=== PATIENT | male | born 1975 | race Caucasian/White ===

== ENCOUNTER 2023-03-22 12:43 | Emergency (ER) | payer MEDICAID, SELFPAY ==
[2023-03-22 13:12] VITALS: BP 134/95; PULSE 104; RESP 16; TEMP 37.2; O2SAT 94; BMI 26.6
--- NOTE | 2023-03-22 13:12 | ED_ITS ---
HPI - Eye Problem General Chief complaint: Eye Problems Stated complaint: R eye swelling Time Seen by Provider: 03/22/23 13:13 Source: patient Mode of arrival: ambulatory Limitations: no limitations History of Present Illness HPI Narrative: 47 yo male healthy who does not require corrective lenses here with complaints of right upper eyelid swelling/redness/drainage x 2 days. No vision change, eye pain, photophobia. No injury or trauma. Related Data Previous Rx's Medication Instructions Recorded erythromycin 5 mg/gram (0.5 %) eye 0.5 inch ophthalmic (eye) BID #3.5 03/22/23 ointment grams Allergies Allergy/AdvReac Type Severity Reaction Status Date / Time No Known Allergies Allergy Verified 03/22/23 13:12 Review of Systems Review of Systems: Yes all other systems are reviewed and are negative Constitutional: Constitutional: Reports no additional constitutional complaints, Denies body ache(s), Denies chills, Denies fever(s), Denies headache(s) and Denies weakness Eyes: Eyes: Reports no additional eye complaints, Denies blurry vision, Denies change in vision, Reports eye discharge, Denies irritation, Denies eye pain, Denies requires corrective lenses and Denies photophobia ENT: Reports system reviewed and no additional complaints, except as documented, Denies dizziness, Denies headache(s), Denies nasal congestion, Denies nasal discharge and Denies neck pain Cardiovascular: Cardiovascular: Reports no additional cardiovascular complaints, Denies chest pain, Denies leg edema and Denies dyspnea Respiratory: Respiratory: Reports no additional respiratory complaints, Denies cough and Denies dyspnea Gastrointestinal: Gastrointestinal: Reports no additional gastrointestinal complaints, Denies abdominal pain, Denies diarrhea, Denies nausea and Denies vomiting Genitourinary: Genitourinary: Denies urinary incontinence Musculoskeletal: Musculoskeletal: Reports no additional musculoskeletal complaints, Denies back pain, Denies arthralgias, Denies joint swelling, Denies neck pain, Denies numbness and Denies tingling Integumentary/Breasts: Skin/Breast: Reports system reviewed and no additional complaints, except as docu and Denies rash Neurologic: Reports system reviewed and no additional complaints, except as documented, Denies Abnormal speech present, Denies dizziness, Denies headache(s), Denies numbness, Denies tingling and Denies weakness [facility] Past Medical History Attestation statement: The following information was validated with the patient. Source: old records reviewed and nursing notes reviewed Physical Exam Vital Signs: Vital Signs: Last Vital Signs Temp 98.9 F 03/22/23 13:12 Pulse 104 H 03/22/23 13:12 Resp 16 03/22/23 13:12 BP 134/95 H 03/22/23 13:12 Pulse Ox 94 03/22/23 13:12 O2 Del Method Room Air 03/22/23 13:12 BMI result Body Mass Index 26.6 Const: General: cooperative, healthy appearing, comfortable and no acute distress Orientation/consciousness: patient oriented x3 Limitations: no limitations HEENT: Head: Yes normal to inspection Ears: hearing grossly normal bilaterally General nose exam: Normal external nose present Face and sinus: Yes normal facial exam Mouth: Normal oral and palatal mucosa present Throat: Yes posterior oropharynx normal Eyes: General: appearance normal, both eyes and all related structures Visual Cottrell: normal visual cottrell by confrontation Alignment and Position: alignment normal Periorbital: periorbital findings normal Eyelids: Yes other (Right upper eyelid swelling/erythema) Conjunctivae: conjunctivae normal Sclerae: sclerae normal Corneas: corneas normal Pupils: Equal, round and reactive pupils present EOM: EOMs intact bilaterally Direct Ophthalmoscopy: normal light reflex and No photophobia Neck: Neck: Yes normal visual inspection Chest: Chest palpation & inspection: normal inspection of the chest Resp: Effort & Inspection: normal respiratory effort Auscultation: clear to auscultation bilaterally Cardio: Rate: regular rate Rhythm: regular rhythm Peripheral pulses: Peripheral pulses 2+ throughout GI: Inspection: Yes normal to inspection Palpation (GI): Soft to palpation and nontender Auscultation: normal bowel sounds Back/Spine/Pelvis: Thoracic/Lumbar Spine: thoracic and lumbar spine normal to inspection Skin: General skin exam: no rashes or lesions noted Neuro: General: patient oriented x3, no focal motor deficits and normal sensation to monofilament Cranial nerves: Yes Equal, round and reactive pupils present Cognition (Neuro): normal cognition Speech: No Abnormal speech present Gait exam (Neuro): Normal gait present Motor exam (neuro): 5/5 motor strength present throughout Extrem: General: Yes normal to inspection Medical Decision Making Medical Decision Making MDM Narrative: 47 yo male healthy who does not require corrective lenses here with complaints of right upper eyelid swelling/redness/drainage x 2 days. No vision change, eye pain, photophobia. No injury or trauma. Exam c/w chalazion. PERRLA. EOM normal. No visual complaints Will recommend warm compresses, gentle massage and topical antibiotic ointment Differential Diagnosis Differential Diagnoses: The differential diagnosis associated with the presentation includes chalazion, hordelouem, conjunctivitis Low concern for abrasion, fb, orbital cellulites Admission/Observation Consideration of admission/observation: Escalation of care including admission/observation considered Normal EOM, no visual complaints, proctosis to suggest orbital cellulitis requiring CT imaging, urgent ophthalmology consultation Tests considered The following testing was considered but not selected: Normal EOM, no visual complaints, proctosis to suggest orbital cellulitis and need for Ct imaging Prescription Management I considered prescription management with: Antibiotic Discharge Plan Discharge Clinical Impression: Chalazion Patient Disposition: Home, Self-Care Instructions: Chalazion (ED) Additional Instructions: Warm compresses, gentle massage Prescriptions: New erythromycin 5 mg/gram (0.5 %) ointment 0.5 inch ophthalmic (eye) BID Qty: 3.5 0RF Referrals: Physician,Unknown J [Primary Care Provider] - 1 week (PCP)
== END 2023-03-22 13:52 | disposition home or self-care (01) ==
PROVIDERS: Emergency Provider Emergency Medicine Emergency Medical Services
DX: H00.11 Chalazion right upper eyelid (principal); H01.9 Unspecified inflammation of eyelid
CPT/HCPCS: 99282; 99283

== ENCOUNTER 2023-06-05 18:58 | Emergency (ER) | payer MEDICAID, SELFPAY ==
--- NOTE | ~2023-06-05 | XR_ITS ---
EXAMINATION: XR FINGER, LEFT CLINICAL INFORMATION: Cellulitis/abscess or COMPARISON: None available. TECHNIQUE: 3 views of the left left or the finger. FINDINGS: Bone alignment is normal. No fracture, dislocation or x-ray evidence of osteomyelitis. Normal joint spaces. Mild soft tissue swelling XR/XR finger LT min 2V IMPRESSION: Mild soft tissue swelling. No fracture or x-ray evidence of osteomyelitis.
--- NOTE | ~2023-06-05 | XR_ITS ---
EXAMINATION: XR CHEST CLINICAL INFORMATION: Left chest pain COMPARISON: None available. TECHNIQUE: 2 views of the chest were obtained. FINDINGS: No significant abnormality is noted involving the heart, lungs, mediastinum, bony thorax or soft tissues. Old right fifth rib fracture. XR/XR chest 2V IMPRESSION: No evidence for acute disease in the chest.
--- NOTE | 2023-06-05 19:05 | ECG_ITS ---
Test Reason : chest pain Blood Pressure : / mmHG Vent. Rate : 076 BPM Atrial Rate : 076 BPM P-R Int : 122 ms QRS Dur : 078 ms QT Int : 388 ms P-R-T Axes : 056 014 029 degrees QTc Int : 436 ms Normal sinus rhythm Minimal voltage criteria for LVH, may be normal variant ( R in aVL ) Borderline ECG No previous ECGs available Referred By: Ania Huff Electronically Signed By:MACY SMITH MD
[2023-06-05 19:51] VITALS: BP 152/107; PULSE 82; RESP 20; TEMP 37.1; O2SAT 97; BMI 25.8
--- NOTE | 2023-06-05 19:57 | ED.GENADULT ---
HPI - General Adult General Chief complaint: General Medical Stated complaint: finger infection, chest pain Time Seen by Provider: 06/05/23 23:13 Source: patient, RN notes reviewed and old records reviewed Mode of arrival: ambulatory Limitations: no limitations History of Present Illness HPI narrative: 47-year-old male presents for evaluation of left 4th finger swelling He also endorses chest pain Patient reports the finger pain started yesterday and he has been elevating his finger due to the pain He admits to biting the skin when he has hang nails He complains of 10/10 pain to the left 4th finger He also complains of chest pain that started today Denies any fevers or chills The patient admits to heroin abuse Related Data Previous Rx's Medication Instructions Recorded erythromycin 5 mg/gram (0.5 %) eye 0.5 inch ophthalmic (eye) BID #3.5 03/22/23 ointment grams cephalexin 500 mg capsule 500 mg PO QID #28 caps 06/05/23 Allergies Allergy/AdvReac Type Severity Reaction Status Date / Time No Known Allergies Allergy Verified 06/05/23 19:51 Review of Systems Constitutional: Constitutional: Denies body ache(s), Denies chills and Denies fever(s) Cardiovascular: Cardiovascular: Reports chest pain Musculoskeletal: Musculoskeletal: Reports arthralgias Integumentary/Breasts: Skin/Breast: Reports erythema and Reports skin pain PMFSH Social History Social History Advance Directives: No Advance Directives Information Provided: No Physical Exam ED Vital Signs: Vital Signs - 24 hr 06/05/23 19:51 06/05/23 22:21 Temperature 98.8 F 98.9 F Pulse Rate 82 75 Respiratory Rate 20 18 Blood Pressure 152/107 H 147/87 H Pulse Oximetry 97 98 Oxygen Delivery Method Room Air Room Air BMI result Body Mass Index 25.8 Const General: healthy appearing, comfortable, no acute distress, alert and awake Nutritional Appearance: well nourished Orientation/consciousness: patient oriented x3 HENMT Head: Yes normocephalic and Yes atraumatic Eyes Eyelids: Yes eyelids normal Conjunctivae: conjunctivae normal Sclerae: sclerae normal Corneas: corneas normal Pupils: Equal, round and reactive pupils present EOM: EOMs intact bilaterally Neck Neck: Yes full ROM Chest Other: Patient has tenderness to left anterior chest wall. There is no crepitus or deformity noted. Resp Effort & Inspection: normal respiratory effort, able to speak in complete sentences and not labored Cardio Rate: regular rate Rhythm: regular rhythm Skin Other: Left 4th finger paronychia with mild edema, erythema. The patient is able to flex and extend all joints of the 4th and including the MCP, PIP and the IP joints. General skin exam: elasticity normal Neuro General: patient oriented x3 Cranial nerves: Yes Equal, round and reactive pupils present and Yes Bilaterally intact EOM present Cognition (Neuro): normal cognition Extrem Other: Moving all extremities well without any obvious deformities Course Course Course Narrative: RME:?47 yo male here for evaluation of left sided chest pain on waking this morning. pain is constant. admits to IVDU. Last injected heroin this morning. chest pain was present prior to using heroin this morning. additionally endorses infection to nail of left ring finger that he noticed on waking this morning. +pain. putting antibiotic ointment on it at home. admits to chewing nails. +swelling/redness around distal left ring finger w/ pointing labs, cxr ordered Full HPI, ROS and PE to be performed by the primary ED provider. Medications Administered Discontinued Medications Generic Name Dose Route Start Last Admin Trade Name Derekq PRN Reason Stop Dose Admin Acetaminophen 650 mg 06/05/23 21:20 06/05/23 21:50 Acetaminophen 325 Mg Tablet PO 06/05/23 21:21 650 mg ONCE ONE Administration Lidocaine HCl 5 ml 06/05/23 23:17 06/05/23 23:27 Lidocaine Hcl 1 % Mpf 5 Ml Vial INFILTRATI 06/05/23 23:18 5 ml ONCE ONE Administration Procedures Abscess I/D Site: hand (Left 4th finger) Side (if applicable): left Local Anesthetic: lidocaine 1% (Digital block) Amount of anesthesia used (mL): 4 Technique: incised with blade (11 blade scalpel) Amount of fluid expressed (mL): 2 Sent for culture/gram staining?: No Irrigation: No Packing used?: none Medical Decision Making Medical Decision Making [facility] Narrative: For evaluation of primarily right 4th finger pain but also chest pain. His chest pain started the morning after his finger pain started. His pain is reproducible on exam and is likely related to keeping his arm elevated. He did have a cardiac workup was unremarkable. Negative troponin, negative chest x-ray and EKG that did not show any ischemic changes. He is ruled out for ACS. The patient also had a finger x-ray that shows no evidence of osteomyelitis. Given that his symptoms all started yesterday feel this would be less likely any ways. See procedure note for paronychia drainage. Eleven blade was slid under the skin along the nail plate and rotated 90? to express purulent drainage Differential Diagnosis Differential Diagnoses: The differential diagnosis associated with the presentation includes Chest pain Paronychia Finger pain Cellulitis Lab Data MDM Lab Attestation statement: I reviewed the patient's lab results. No leukocytosis or anemia. No significant electrolyte abnormalities. Troponin less than 2.7 06/05/23 20:15 06/05/23 20:15 Labs: Lab Results 06/05/23 06/05/23 Range/Units 20:15 20:16 WBC 9.3 (4.8-10.8) X10*3/uL RBC 5.42 (4.60-5.80) X10*6/uL Hgb 14.9 (14.0-18.0) g/dl Hct 46.4 (42.0-52.0) % MCV 85.6 (80.0-98.0) fL MCH 27.5 (27.0-33.0) pg MCHC 32.1 (31.0-36.0) g/dl RDW 12.6 (11.0-16.0) % Plt Count 211 (160-400) X10*3/uL MPV 10.7 (9.4-12.4) fL Immature Gran % (Auto) 0.2 (0.0-0.4) % Neut % (Auto) 59.1 (45-73) % Lymph % (Auto) 27.8 (20-40) % [place] % (Auto) 10.0 (2-11) % Eos % (Auto) 2.5 (0-4) % Baso % (Auto) 0.4 (0-2) % Lymph # (Auto) 2.6 (1.2-4.9) X10*3/uL [place] # (Auto) 0.9 (0.1-1.2) X10*3/uL Eos # (Auto) 0.2 (0.0-0.4) X10*3/uL Baso # (Auto) 0.0 (0.0-0.2) X10*3/uL Abs Immat Gran (auto) 0.02 (0.00-0.03) X10*3/uL Absolute Neuts (auto) 5.5 (2.0-8.3) x10*3/uL Absolute Nucleated RBC 0.000 (0.0-0.012) X10*3/uL Nucleated RBC % (auto) 0.0 (0.0-0.2) /100WBC Sodium 139 (135-145) mmol/L Potassium 4.1 (3.3-5.1) mmol/L Chloride 104 (96-108) mmol/L Carbon Dioxide 26 (22-29) mmol/L Anion Gap 13 (12-20) BUN 17 H (9-16) mg/dL Creatinine 0.71 (0.5-1.4) mg/dL Estim Creat Clear Calc 123.0 Estimated GFR > 60 Random Glucose 152 H (60-115) mg/dL Calcium 9.0 (8.4-10.2) mg/dL Magnesium 2.0 (1.6-2.6) mg/dL Troponin I High Sens < 2.7 (<3.5-35.0) ng/L Influenza Type A (PCR) NEGATIVE (Negative) Influenza Type B (PCR) NEGATIVE (Negative) RSV RNA Qual (PCR) NEGATIVE (Negative) SARS-CoV-2 RNA (RT-PCR) NEGATIVE (Negative) Independent Interpretation I performed an independent interpretation of an: EKG (Normal sinus rhythm with a rate of 76 beats per minute. No ST segment changes.) and Plain X-Ray (No obvious osseous deformity to the left 4th finger) Interpretation: Chest x-ray shows no evidence of infiltrate or pneumothorax Radiology Impression Discussion of test interpretation with radiology: I have reviewed the radiologist's reading. (Soft tissue swelling of the left 4th finger with no evidence of osteomyelitis) Radiologist Impression: No evidence of acute disease in the chest Discharge Plan Discharge Clinical Impression: Paronychia of finger, Chest pain Patient Disposition: Home, Self-Care Instructions: Paronychia (ED) Additional Instructions: Your workup in the ER today was reassuring. Your chest pain workup not show any concerning abnormalities. Your chest pain is likely musculoskeletal related to holding your finger up Your finger pain was caused by an infection called a paronychia which was drained Take the antibiotics as prescribed Prescriptions: New cephalexin 500 mg capsule 500 mg PO QID Qty: 28 0RF No Action erythromycin 5 mg/gram (0.5 %) ointment 0.5 inch ophthalmic (eye) BID Qty: 3.5 0RF Stand Alone Forms: Work/School Release
--- NOTE | 2023-06-05 20:10 | MHC.EDTECH ---
Patient brought from X-ray to triage area,labs,and sars/flu/rsv obtained and sent to lab.Patient brought to waiting room at this time
[2023-06-05 20:21] LABS: MANUAL DIFF FLAG NO
[2023-06-05 20:24] LABS: Basophils Percent Auto 0.4 % (0-2); Eosinophils Absolute Auto 0.2 X10*3/uL (0.0-0.4); Eosinophils Percent Auto 2.5 % (0-4); Hematocrit 46.4 % (42.0-52.0); Hemoglobin 14.9 g/dl (14.0-18.0); Imm Gran Abs Auto 0.02 X10*3/uL (0.00-0.03); Imm Gran Pct Auto 0.2 % (0.0-0.4); Lymphocytes Absolute Auto 2.6 X10*3/uL (1.2-4.9); Lymphocytes Percent Auto 27.8 % (20-40); Mean Corpuscular HGB Conc 32.1 g/dl (31.0-36.0); Mean Corpuscular Hemoglobin 27.5 pg (27.0-33.0); Mean Corpuscular Volume 85.6 fL (80.0-98.0); Mean Platelet Volume 10.7 fL (9.4-12.4); Monocytes Absolute Auto 0.9 X10*3/uL (0.1-1.2); Neutrophils Absolute Auto 5.5 x10*3/uL (2.0-8.3); Neutrophils Percent Auto 59.1 % (45-73); Platelet Count 211 X10*3/uL (160-400); Red Blood Count 5.42 X10*6/uL (4.60-5.80); Red Cell Distribution Width 12.6 % (11.0-16.0); White Blood Count 9.3 X10*3/uL (4.8-10.8)
[2023-06-05 20:38] LABS: Anion Gap 13 (12-20); Blood Urea Nitrogen 17 mg/dL (9-16); Carbon Dioxide 26 mmol/L (22-29); Chloride 104 mmol/L (96-108); Estimated Glomerular Filt Rate > 60; Glucose Random 152 mg/dL (60-115); Potassium 4.1 mmol/L (3.3-5.1); Sodium 139 mmol/L (135-145)
[2023-06-05 20:46] LABS: Troponin-I High Sensitivity < 2.7 ng/L (<3.5-35.0)
[2023-06-05 21:02] LABS: Influenza A PCR NEGATIVE (Negative); Influenza B PCR NEGATIVE (Negative); Resp Syncy Virus RNA Qual PCR NEGATIVE (Negative); SARS COV2 PCR INHOUSE NEGATIVE (Negative)
[2023-06-05] MEDS: Acetaminophen 325 MG TABLET 650 MG PO (21:50)
[2023-06-05 22:21] VITALS: BP 147/87; PULSE 75; RESP 18; TEMP 37.2; O2SAT 98
[2023-06-05] MEDS: Lidocaine HCl 1 % MPF 5 ML VIAL INFILTRATI (23:27)
[2023-06-05] MEDS: cephALEXin 500 MG CAPSULE PO (23:48)
--- NOTE | 2023-06-05 23:57 | PC.NURSE ---
this rn assumed care of pt @ 1499. pt medicated according to mar. pt calm and cooperative ambulatory at discharge pt provided with bandaid cms intact. pt provided with discharge packet and work note pt verbalized understanding of discharge plan
== END 2023-06-05 23:59 | disposition home or self-care (01) ==
PROVIDERS: Physician Assistant Medical; Emergency Provider Internal Medicine
DX: L03.011 Cellulitis of right finger (principal); R07.9 Chest pain, unspecified; M79.645 Pain in left finger(s); Z11.52 Encounter for screening for COVID-19; Z20.828 Contact with and (suspected) exposure to other viral communicable diseases
CPT/HCPCS: 0241U; 26010; 36415; 71046; 73140; 80048; 83735; 84484; 85025; 93005; 99284

== ENCOUNTER → 2023-06-05 19:05 | Outpatient (BNV) | payer MEDICAID, SELFPAY | PROVIDERS: Emergency Provider Internal Medicine; Visit Provider Internal Medicine Cardiovascular Disease | DX: R07.9 Chest pain, unspecified (principal) | CPT/HCPCS: 93010 ==